=== PATIENT | female | born 1975 | race Caucasian/White ===

== ENCOUNTER 2016-11-12 04:47 | Day surgery (SDC) | payer OTHER, SELFPAY ==
[~2016-11-12 04:47] MED LIST: TYLENOL PO
== END 2016-11-12 15:15 ==
LOC: SHSC 04:47 → ORE 08:50 → PACU 10:22 → SHSC 11:05
PROC: 0CB90ZZ Excision of Left Parotid Gland, Open Approach (ICD-10-PCS; principal; 2016-11-12)
PROC: 00BM0ZZ Excision of Facial Nerve, Open Approach (ICD-10-PCS; 2016-11-12)
DX: D11.0 Benign neoplasm of parotid gland (principal); E66.09 Other obesity due to excess calories; Z68.30 Body mass index [BMI] 30.0-30.9, adult; Z98.51 Tubal ligation status
CPT/HCPCS: J0171; J0690; J1100; J1200; J2405; J7050